=== PATIENT | male | born 1970 | race Native Hawaiian/Other Pacific Islander ===

== ENCOUNTER 2016-05-03 11:30 | Emergency (ER) | payer OTHER ==
[~2016-05-03] VITALS: Ht 180.3 cm; Wt 68.0 kg
[2016-05-03 12:20] LABS: PLATELET COUNT 273 K/uL (142-355)
[2016-05-03 12:35] LABS: POTASSIUM 4.1 mmol/L (3.6-5.2); SODIUM 137 mmol/L (136-145)
[2016-05-03] MEDS ORDERED: HYDR25TA15 PO (12:55)
[2016-05-03] MEDS ORDERED: ACET-689 PO (12:55)
== END 2016-05-03 13:00 | disposition home or self-care (01) ==
LOC: ED 11:30
PROVIDERS: Family Medicine
DX: R51 Headache (principal); F43.9 Reaction to severe stress, unspecified; F41.9 Anxiety disorder, unspecified
CPT/HCPCS: 36415; 80053; 80307; 80320; 81000; 85027; 99283; G0479